=== PATIENT | female | born 1995 | race Caucasian/White ===

== ENCOUNTER → 2019-04-20 11:37 | Outpatient (CLI) | payer BC, SELFPAY ==
[2019-04-20 13:00] LABS: Hematocrit 37.9 % (36-46); Hemoglobin 13.1 g/dL (12.0-16.0)
[2019-04-20 13:19] LABS: GTT (PREG) 1 Hour PP 50gm Dose 106 mg/dL (76-139)
[2019-04-23 13:32] LABS: RPR Screen Nonreactive (Nonreactive)
== END ==
DX: Z34.82 Encounter for supervision of other normal pregnancy, second trimester (principal); O26.899 Other specified pregnancy related conditions, unspecified trimester; Z67.91 Unspecified blood type, Rh negative
CPT/HCPCS: 36415; 82950; 85014; 85018; 86592; 86850

== ENCOUNTER → 2019-06-15 10:25 | Outpatient (CLI) | payer BC, SELFPAY ==
[2019-06-16 12:03] LABS: Strep Grp B PCR POS for Grp B Strep
== END ==
DX: Z34.03 Encounter for supervision of normal first pregnancy, third trimester (principal); Z3A.35 35 weeks gestation of pregnancy
CPT/HCPCS: 87653

== ENCOUNTER 2019-07-18 11:20 | Outpatient (CLI) | payer BC, SELFPAY | END 2019-07-18 12:21 | disposition home or self-care (01) | LOC: OB 07-19 11:09 | DX: O48.0 Post-term pregnancy (principal); Z3A.40 40 weeks gestation of pregnancy | CPT/HCPCS: 59025; G0378; G0379 ==

== ENCOUNTER 2019-07-27 10:45 | Outpatient (CLI) | payer BC, SELFPAY | END 2019-07-27 11:30 | disposition home or self-care (01) | LOC: LABOR 11:09 → OB 07-28 11:18 | DX: O48.0 Post-term pregnancy (principal); Z3A.41 41 weeks gestation of pregnancy | CPT/HCPCS: 59025; G0378; G0379 ==

== ENCOUNTER 2019-07-30 08:18 | Inpatient (IN) | payer BC, SELFPAY ==
[2019-07-30 10:17] LABS: Add Manual Diff / Slide Review NO; Basophils Absolute Auto 100 /uL (0-100); Basophils Percent Auto 0.6 % (0-2); Eosinophils Absolute Auto 100 /uL (0-450); Eosinophils Percent Auto 1.3 % (2-4); Hematocrit 35.1 % (36-46); Hemoglobin 12.3 g/dL (12.0-16.0); Lymphocytes Absolute Auto 2200 /uL (1100-4500); Lymphocytes Percent Auto 22.3 % (25-40); Mean Corpuscular HGB Conc 35.1 % (30-36); Mean Corpuscular Hemoglobin 29.3 PG (26-34); Mean Corpuscular Volume 83.4 fL (80-100); Monocytes Absolute Auto 700 /uL (0-900); Monocytes Percent Auto 7.1 % (3-14); Neutrophils Absolute Auto 6800 /uL (1500-7000); Neutrophils Percent Auto 68.7 % (50-75); Platelet Count 162 X10^3/uL (150-400); Red Blood Cell Count 4.21 X10^6/uL (4.0-5.2); Red Cell Distribution Width 14.6 % (11.6-14.8); White Blood Cell Count 9.9 X10^3/uL (4.5-11.0)
[2019-07-30] MEDS: LACTATED RINGERS 1,000 ML 100 ML IV (10:17)
[2019-07-30] MEDS: PENICILLIN G POTASSIUM 5,000,000 UNIT in DEXTROSE 5% IN WATER 250 ML IV (10:25)
[2019-07-30 10:43] VITALS: BP 119/69
[2019-07-30] MEDS: OXYTOCIN PREMIX 30 UNIT/500 ML PLAST..BAG IV (11:47)
[2019-07-30] MEDS: PENICILLIN G POTASSIUM 3,000,000 UNIT/50 ML FROZ.PIGGY 100 UNIT IV ×2 (14:21→18:28)
--- NOTE | 2019-07-30 21:17 | P.HPOB_ITS ---
OB HPI Date/Time Date of admission: 07/30/19 Date Patient Seen: 07/30/19 Time Patient Seen: 13:45 History of Present Condition Chief complaint: labor : 2 Para: 0 Estimated Date of Delivery: 07/18/19 Estimated Gestational Age (weeks): 41+5 Narrative: Vanna Roberson is a 23 year old female Indications Other reason(s) for admission: SROM at 0645 History of Present care: good care, initiated at week # (8), number of visits (13) and pounds weight gain (38) Dating criteria: LMP confirmed by 1st trimester US Ultrasounds: normal 1st trimester US and normal mid trimester US Obstetrical complications: none Medical complications: none Preadmission Labs Blood type: A (-) negative -: Antibody screen: negative, GBS status: positive, HBsAG: negative, HIV: negative and RPR/VDLR: negative -: Chlamydia screen: not detected and Gonorrhea screen: not detected -: Rubella: not immune and Varicella: not immune HCT: 37.9 HCAB: negative PAP: Normal 1 hr GTT: 106 Prior (ies) History: 08/2018 SAB Evaluation Evaluation Baseline heart rate: 125 Variability: Moderate (11-25) monitor accelerations: Present monitor decelerations: Absent Contraction Frequency (minutes): 6 Uterine Contraction Intensity: Mild Category of Tracing: I Cervical dilation (cm): 2 Cervical effacement (%): 60 station: -2 Laboratory results: Laboratory Tests 07/30/19 07/30/19 10:00 10:00 WBC 9.9 RBC 4.21 Hgb 12.3 Hct 35.1 L MCV 83.4 MCH 29.3 MCHC 35.1 RDW 14.6 Plt Count 162 Neut % (Auto) 68.7 Lymph % (Auto) 22.3 L [place] % (Auto) 7.1 Eos % (Auto) 1.3 L Baso % (Auto) 0.6 Neut # (Auto) 6800 Lymph # (Auto) 2200 [place] # (Auto) 700 Eos # (Auto) 100 Baso # (Auto) 100 Blood Type A Negative Antibody Screen Negative [employer] Social History Smoking Status: Never smoker Exam Vital Signs (past 8 hours): Generally: Mild distress secondary to contractions Lungs: Clear to auscultation bilaterally Cardiovascular: Regular rate and rhythm Fundal height: 42 cm Estimated weight: 8 lb Extremities: 1+ edema, 1+ DTRs Objective Labs Result Diagrams: 07/30/19 10:00 Labs: Laboratory Results - last 24 hr 07/30/19 07/30/19 10:00 10:00 WBC 9.9 RBC 4.21 Hgb 12.3 Hct 35.1 L MCV 83.4 MCH 29.3 MCHC 35.1 RDW 14.6 Plt Count 162 Neut % (Auto) 68.7 Lymph % (Auto) 22.3 L [place] % (Auto) 7.1 Eos % (Auto) 1.3 L Baso % (Auto) 0.6 Neut # (Auto) 6800 Lymph # (Auto) 2200 [place] # (Auto) 700 Eos # (Auto) 100 Baso # (Auto) 100 Blood Type A Negative Antibody Screen Negative Assessment and Plan Assessment and Plan Assessment and Plan narrative: Assessment: 23-year-old 2 para 0 at 41-,5/7 weeks gestation with spontaneous rupture of membranes GBS positive No regular contractions Plan: GBS prophylaxis Pitocin per protocol 2 Epidural as necessary Expected management to spontaneous vaginal delivery Time Spent with Patient Total time spent with greater than 50% in coordination of care (as documented) at patient's floor/unit and/or counseling patient:: 15-24 minutes
--- NOTE | 2019-07-30 21:27 | P.PCNOB_ITS ---
Events: Labor Augmentation and Meconium Stained Fluid (Moderate) Labor & Delivery Delivery date: 07/30/19 Cervical ripening method: none Induction method: none Delivery augmentation: pitocin Delivery monitor: external FHT and external uterine Route of delivery: Episiotomy description: None L&D Laceration Description: Vaginal - 1st Degree Delivery repair: chromic (3-0) Estimated blood loss (mL): 150 Anesthesia type: Epidural Complications: None Narrative: Patient complete and pushed for 40 minutes. At 2049, a live female infant delivered spontaneously over an intact perineum. The remainder of the body delivered without difficulty and was placed on mom's abdomen. After the cord stopped pulsing, the cord was double clamped and cut. Cord bloods were obtained. The placenta delivered intact with a 3 vessel cord at 8:56 p.m.. First-degree right labial, left labial, and periurethral tears were repaired with 3 0 chromic in the usual fashion. Hemostasis was achieved. Estimated blood loss 150 cc. Apgars 8 at 1 minute and 9 at 5 minutes. . Epidural analgesia. Mom and stable to recovery. Plan for aftercare: To routine care
[2019-07-31] MEDS: IBUPROFEN 600 MG TABLET PO ×2 (00:02→11:45)
[2019-07-31 06:48] LABS: Hematocrit 33.2 % (36-46); Hemoglobin 11.1 g/dL (12.0-16.0)
--- NOTE | 2019-07-31 08:09 | P.PNOB_ITS ---
Subjective - OB Subjective Patient comments: no complaints [place] baby status: doing well [place] feeding status: exclusively breast feeding Narrative: Patient is status post spontaneous vaginal delivery without difficulty. She is recovering nicely. Date Patient Seen: 07/31/19 Time Patient Seen: 08:10 Exam Vital Signs (past 8 hours): Abdomen is soft and nontender Fundus is U minus two Lochia is scant Objective Labs Result Diagrams: 07/31/19 06:36 Labs: Laboratory Results - last 24 hr 07/30/19 07/30/19 07/31/19 10:00 10:00 06:36 WBC 9.9 RBC 4.21 Hgb 12.3 11.1 L Hct 35.1 L 33.2 L MCV 83.4 MCH 29.3 MCHC 35.1 RDW 14.6 Plt Count 162 Neut % (Auto) 68.7 Lymph % (Auto) 22.3 L [place] % (Auto) 7.1 Eos % (Auto) 1.3 L Baso % (Auto) 0.6 Neut # (Auto) 6800 Lymph # (Auto) 2200 [place] # (Auto) 700 Eos # (Auto) 100 Baso # (Auto) 100 Blood Type A Negative Antibody Screen Negative Maternal Bleed 07/31/19 06:36 WBC RBC Hgb Hct MCV MCH MCHC RDW Plt Count Neut % (Auto) Lymph % (Auto) [place] % (Auto) Eos % (Auto) Baso % (Auto) Neut # (Auto) Lymph # (Auto) [place] # (Auto) Eos # (Auto) Baso # (Auto) Blood Type Antibody Screen Maternal Bleed Negative Assessment & Plan Plan day: 1 plan OB: routine care Comments: doing Time Spent With Patient Time: Total time spent is greater than 50% in coordination of care (as documented) at patient's floor/unit and/or counseling patient: Time with patient: less than 15 minutes
[2019-07-31] MEDS: PRENATAL VIT,CALC/IRON/FOLIC 1 TABLET 1 TAB PO (11:46)
[2019-07-31] MEDS: DOCUSATE 100 MG CAPSULE PO (11:46)
[2019-08-01] MEDS: IBUPROFEN 600 MG TABLET PO (03:31)
[2019-08-01 07:51] VITALS: BP 107/65; PULSE 82; RESP 16; TEMP 36.6
--- NOTE | 2019-08-01 07:52 | P.DS_ITS ---
Discharge Providers Provider Date of admission: 07/30/19 08:18 Discharge Date: 08/01/19 Consults: 07/31/19 21:30 Consult to Software Developer Routine Comment: Discharge provider: Flaquito Soria MD Summary Hospital Course Date Patient Seen: 08/01/19 Time Patient Seen: 07:52 Procedures: Pitocin augmentation of labor Epidural anesthesia Spontaneous vaginal delivery Repair of 1st degree tear Hospital Course: The patient is a 23-year-old white female one para one. Patient was scheduled for induction because of postdatism but presented with premature spontaneous rupture of the membranes. Pitocin was begun. An epidural was placed. Patient made good progress to complete and pushed for 15 minutes and delivered spontaneous new live-born female in good condition without difficulties. Post delivery the patient did well. She remained afebrile stable vital signs and was progressively alimented and ambulated. She was discharged home for follow-up in four weeks. Peripartum Data Laceration description: Perineal - 1st Degree complications: none Status at Discharge Cognitive/behavioral status at discharge: oriented Functional status at discharge: independent ambulation Overall status at discharge: patient is progressing back to baseline Time Spent with Patient Time attestation: Total time spent providing and/or coordinating discharge services: Objective Labs Result Diagrams: 07/31/19 06:36 Labs: Laboratory Results - last 24 hr 07/31/19 06:36 Maternal Bleed Negative Exam Vital Signs (past 8 hours): Fundus U minus three Lochia scant Perineum without ecchymoses Laceration healing well Discharge Plan Discharge Plan Patient Disposition: Home Discharge orders & Medications Prescriptions: New Dermoplast (with menthol) 20-0.5 % Aerosol 1 spray topical Q1HR PRN (Reason: perineal pain) Qty: 1 RF: 0 oxycodone-acetaminophen 5-325 mg Tablet 1 tab PO Q4HR PRN (Reason: Pain, Moderate (4-6)) Qty: 10 RF: 0 docusate sodium [DOK] 100 mg Capsule 100 mg PO DAILY Qty: 12 RF: 0 ibuprofen 600 mg Tablet 600 mg PO Q6HR PRN (Reason: Pain, Mild (1-3)) Qty: 30 RF: 0 Uyn-H-Qfyvzd Cream 1 applic topical PRN PRN (Reason: Tenderness) Qty: 1 RF: 0 Prenatabs Rx 29 mg iron- 1 mg Tablet 1 tab PO DAILY Qty: 60 RF: 0 Follow up/Referrals: Flaquito Soria MD [Physician] - 1 Month Discharge Health Status Health Concerns: None Multidrug resistant organism: No MDRO Diet/Activity/Treatments Diet: Diet as Tolerated Diet comment: Regular diet Activity: Up ad aamir Other treatments: Perineal care Skin/Wound/Dressing Care Report to your healthcare provider any signs of infection, such as:: chills, fever, increased pain, unusual drainage and unusual redness Other wound treatment: Keep clean and dry
[2019-08-01] MEDS: DOCUSATE 100 MG CAPSULE PO (08:24)
[2019-08-01] MEDS: ACETAMINOPHEN 325 MG TABLET 650 MG PO (08:24)
[2019-08-01] MEDS: PRENATAL VIT,CALC/IRON/FOLIC 1 TABLET 1 TAB PO (08:24)
[2019-08-01] MEDS: MEASLES,MUMPS,RUBELLA VACC/PF 0.5 ML VIAL SUBCUT (12:17)
[2019-08-01] MEDS: RHO(D) IMMUNE GLOBULIN 1,500 UNIT SYRINGE 1500 UNIT IM (12:20)
== END 2019-08-01 13:50 | disposition home or self-care (01) | DRG 807 ==
PROVIDERS: Obstetrics & Gynecology
DX: O48.0 Post-term pregnancy (principal); Z37.0 Single live birth; O99.824 Streptococcus B carrier state complicating childbirth; Z3A.41 41 weeks gestation of pregnancy; O70.0 First degree perineal laceration during delivery; O71.82 Other specified trauma to perineum and vulva
CPT/HCPCS: 01967; 36415; 59050; 59400; 59409; 85014; 85018; 85025; 85461; 86850; 86900; 86901; G0379; J2540; J2590; J2790

== ENCOUNTER → 2020-12-11 16:19 | Outpatient (CLI) | payer BC, SELFPAY ==
[2020-12-11 21:22] LABS: Urine N gonorrhoeae NOT DETECTED
[2020-12-11 21:26] LABS: Urine Chlamydia NOT DETECTED
== END ==
PROVIDERS: Visit Provider Obstetrics & Gynecology
DX: Z34.82 Encounter for supervision of other normal pregnancy, second trimester (principal); Z3A.17 17 weeks gestation of pregnancy
CPT/HCPCS: 87491; 87591

== ENCOUNTER → 2020-12-11 16:49 | Outpatient (CLI) | payer BC, SELFPAY ==
[2020-12-11 17:53] LABS: Add Manual Diff / Slide Review NO; Basophils Absolute Auto 0 /uL (0-100); Basophils Percent Auto 0.2 % (0-2); Eosinophils Absolute Auto 100 /uL (0-450); Eosinophils Percent Auto 1.5 % (2-4); Hematocrit 39.2 % (36-46); Hemoglobin 13.4 g/dL (12.0-16.0); Lymphocytes Absolute Auto 2400 /uL (1100-4500); Lymphocytes Percent Auto 26.1 % (25-40); Mean Corpuscular HGB Conc 34.3 % (30-36); Mean Corpuscular Hemoglobin 29.1 PG (26-34); Monocytes Absolute Auto 400 /uL (0-900); Monocytes Percent Auto 4.6 % (3-14); Neutrophils Absolute Auto 6300 /uL (1500-7000); Neutrophils Percent Auto 67.6 % (50-75); Platelet Count 141 X10^3/uL (150-400); Red Blood Cell Count 4.61 X10^6/uL (4.0-5.2); Red Cell Distribution Width 13.4 % (11.6-14.8); White Blood Cell Count 9.4 X10^3/uL (4.5-11.0)
[2020-12-11 18:13] LABS: Appearance Urine UA CLEAR; Bilirubin Urine UA NEGATIVE (NEGATIVE); Color Urine UA YELLOW; Glucose Urine UA NEGATIVE (Negative); Ketones Urine UA 1+ (NEGATIVE); Leukocyte Esterase Urine UA NEGATIVE (NEGATIVE); Nitrite Urine UA NEGATIVE (Negative); Occult Blood Urine UA NEGATIVE (Negative); Protein Urine UA NEGATIVE (Negative); Specific Gravity Urine UA 1.015 (1.000-1.035); Urobilinogen Urine UA 0.2 E.U./dL (0.2)
[2020-12-11 18:14] LABS: pH Urine UA 5.5 (4.5-8.0)
[2020-12-12 05:30] LABS: RPR Screen Non Reactive (Non Reactive)
[2020-12-12 15:04] LABS: Varicella IgG Antibody <135 index (Immune >165)
[2020-12-13 00:03] LABS: Hepatitis B Surface Antigen NEGATIVE s/c (NEGATIVE); Rubella Antibody IgG 25.8 IU/mL (>15)
[2020-12-13 00:20] LABS: HIV 1 & 2 Ab/Ag 4th Gen Combo NEGATIVE (NEGATIVE); Hep C Virus Ab w/Reflex Quant NEGATIVE s/c (NEGATIVE)
== END ==
PROVIDERS: Referring Provider Obstetrics & Gynecology; Visit Provider Obstetrics & Gynecology
DX: Z34.82 Encounter for supervision of other normal pregnancy, second trimester (principal); Z3A.17 17 weeks gestation of pregnancy
CPT/HCPCS: 36415; 80055; 81003; 86787; 86803; 86850; 86900; 86901; 87086; 87389; 87491; 87591

== ENCOUNTER → 2021-01-03 14:52 | Outpatient (CLI) | payer BC, SELFPAY ==
--- NOTE | 2021-01-03 14:53 | DI.US.S_ITS ---
PROCEDURE: US OB >= 14 WEEKS FETUS INDICATIONS: ANATOMY OUTSIDE/PRIOR DATING DATA: Last menstrual period (LMP): Unknown . LMP-based estimated date of delivery (DIANA): Unknown . First dating scan (date and location): 10/14/2020, [facility] Estimated date of delivery (DIANA) from first dating scan: 05/22/2021. TECHNIQUE: Real-time scanning was performed of the fetus, with image documentation and biometric measurements. COMPARISON: [facility], , OB <= 14 WEEKS FETUS, 10/14/2020, 13:53. [facility], , OB >= 14 WEEKS FETUS, 12/11/2020, 16:44. FINDINGS: General: A single living intrauterine gestation is present. Presentation: Variable. Placenta: Placental position is posterior , without previa. Amniotic fluid index: 10.5 cm, normal range is 5-24 cm. heart rate: 133 beats per minute. Maternal cervical canal: 3.0 cm long. Normal lower limit is 2.5 cm. biometrics: Biparietal diameter: 4.7 cm, 20 weeks 0 days Head circumference: 17.1 cm, 19 weeks 5 days Abdominal circumference: 15.2 cm, 20 weeks 3 days Femur length: 3.4 cm, 20 weeks 5 days Estimated gestational age from initial scan: not applicable. Composite gestational age from present scan: 20 weeks 2 days Estimated weight and percentile: 356 g Measurement variability for biometric dating: +/- 7 days from 14 weeks to 15 weeks 6 days gestation, +/- 10 days from 16 weeks to 21 weeks 6 days gestation, +/- 2 weeks from 22 weeks to 27 weeks 6 days gestation, +/- 3 weeks for 28 weeks gestation or later. weight reference: 4500 g or EFW >90/95% is considered macrosomia or large for gestational age. EFW <10% is small for gestational age. EFW 5% or less is considered intra-uterine growth restriction. Anatomic survey: Neuro: Ventricles are non-dilated at less than 10 mm. Cisterna magna is normal at 3-11 mm. Cerebellum is normal in size and morphology. Nuchal skin fold: Normal at less than 6 mm between 14-21 weeks gestational age. Face: Nose and lips, facial profile are normal. Spine: No evidence for spina bifida. Heart: 4-chambered heart is present, with normal ventricular outflow tracts. Diaphragm: Diaphragm is intact. Stomach: Left-sided stomach is present. Kidneys: No hydronephrosis. Normal is less than 5 mm in 2nd trimester, less than 7 mm in 3rd trimester. Cord: 3-vessel cord has orthotopic insertion. Bladder: Normal in size. Extremities: All 4 extremities identified. IMPRESSION: 1. Living 2nd trimester intrauterine . Current ultrasound age is 1 day less than clinical age based on initial ultrasound performed at [facility] 2. Normal anatomy study. Dictated by: Hernandez Valle M.D. on 01/03/2021 at 16:56 Approved by: Hernandez Valle M.D. on 01/03/2021 at 17:03
== END ==
PROVIDERS: PCP Family Medicine; Referring Provider Obstetrics & Gynecology; Visit Provider Obstetrics & Gynecology
DX: Z3A.20 20 weeks gestation of pregnancy (principal); Z34.82 Encounter for supervision of other normal pregnancy, second trimester
CPT/HCPCS: 76811

== ENCOUNTER → 2021-02-06 13:13 | Outpatient (CLI) | payer BC, SELFPAY ==
[2021-02-06 15:32] LABS: Add Manual Diff / Slide Review NO; Basophils Absolute Auto 0 /uL (0-100); Basophils Percent Auto 0.3 % (0-2); Eosinophils Absolute Auto 100 /uL (0-450); Hemoglobin 12.1 g/dL (12.0-16.0); Lymphocytes Absolute Auto 1700 /uL (1100-4500); Lymphocytes Percent Auto 19.9 % (25-40); Mean Corpuscular HGB Conc 34.6 % (30-36); Mean Corpuscular Hemoglobin 30.1 PG (26-34); Monocytes Absolute Auto 400 /uL (0-900); Monocytes Percent Auto 4.8 % (3-14); Neutrophils Absolute Auto 6300 /uL (1500-7000); Platelet Count 132 X10^3/uL (150-400); Red Blood Cell Count 4.03 X10^6/uL (4.0-5.2); White Blood Cell Count 8.6 X10^3/uL (4.5-11.0)
[2021-02-06 15:54] LABS: GTT (PREG) 1 Hour PP 50gm Dose 118 mg/dL (76-139)
[2021-02-13 13:28] LABS: AFP, Serum 76.6 ng/mL (.); Estriol, Free 3.65 ng/mL (.); Inhibin A, Dimeric 235.16 pg/mL (.); Inhibin A, MoM See interpretation. (.); Maternal Ethnicity Caucasian (.); Maternal Weight 198 lbs (.); Number of Fetuses No (.); OSBR Risk 1 IN See interpretation. (.); Results Report (.); T18 Risk by Age See interpretation. (.); Test Results See interpretation. (.); hCG, MoM See interpretation. (.); hCG, Serum 22126 mIU/mL (.)
== END ==
PROVIDERS: PCP Family Medicine; Referring Provider Obstetrics & Gynecology; Visit Provider Obstetrics & Gynecology
DX: Z34.82 Encounter for supervision of other normal pregnancy, second trimester (principal); Z3A.26 26 weeks gestation of pregnancy
CPT/HCPCS: 36415; 82105; 82677; 82950; 84702; 85025; 86336; 86850

== ENCOUNTER → 2021-04-16 17:01 | Outpatient (CLI) | payer BC, SELFPAY ==
[2021-04-17 13:24] LABS: Strep Grp B PCR NEG for Grp B Strep
== END ==
PROVIDERS: PCP Family Medicine; Visit Provider Obstetrics & Gynecology
DX: Z34.83 Encounter for supervision of other normal pregnancy, third trimester (principal); Z3A.35 35 weeks gestation of pregnancy
CPT/HCPCS: 87653

== ENCOUNTER 2021-05-19 07:13 | Inpatient (IN) | payer BC, SELFPAY ==
[2021-05-19 08:09] VITALS: BP 110/59
[2021-05-19 08:17] LABS: Add Manual Diff / Slide Review NO; Basophils Absolute Auto 0 /uL (0-100); Basophils Percent Auto 0.3 % (0-2); Eosinophils Absolute Auto 100 /uL (0-450); Eosinophils Percent Auto 1.2 % (2-4); Hematocrit 38.6 % (36-46); Lymphocytes Absolute Auto 2300 /uL (1100-4500); Lymphocytes Percent Auto 27.5 % (25-40); Mean Corpuscular HGB Conc 33.6 % (30-36); Mean Corpuscular Hemoglobin 29.2 PG (26-34); Mean Corpuscular Volume 86.8 fL (80-100); Monocytes Absolute Auto 600 /uL (0-900); Monocytes Percent Auto 7.3 % (3-14); Neutrophils Absolute Auto 5300 /uL (1500-7000); Neutrophils Percent Auto 63.7 % (50-75); Platelet Count 137 X10^3/uL (150-400); Red Blood Cell Count 4.45 X10^6/uL (4.0-5.2); White Blood Cell Count 8.3 X10^3/uL (4.5-11.0)
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
[2021-05-19] MEDS: LACTATED RINGERS 1,000 ML 100 ML IV ×3 (08:56→19:23)
[2021-05-19] MEDS: OXYTOCIN PREMIX 30 UNIT/500 ML PLAST..BAG IV (08:56)
[2021-05-19 09:07] LABS: COVID19 - ADMIT (NP swab/PCR) Negative (Negative)
[2021-05-19] MEDS: FENT 2MCG/ML BUPIV 0.125% EPI 200 MCG/100 ML PLAST..BAG 10 MCG EPIDURAL (16:43)
[2021-05-19] MEDS: OXYTOCIN 10 UNIT/ML VIAL IM (20:40)
[2021-05-19] MEDS: METHYLERGONOVINE 0.2 MG/ML VIAL IM (20:45)
--- NOTE | 2021-05-19 20:55 | PM.OBPRVD ---
Labor & Delivery Delivery date: 05/19/21 Cervical ripening method: none Induction method: per pitocin protocol Delivery augmentation: rupture of membranes Delivery monitor: external FHT and external uterine Route of delivery: L&D Laceration Description: Perineal - 1st Degree (Not requiring sutures) and Labial (Right not requiring sutures) Estimated blood loss (mL): 650 Anesthesia Type: Epidural Narrative: Patient arrived on Labor and delivery for induction for postdates. She was started on Pitocin for induction. She received an epidural catheter for pain control after AROM for clear fluid. heart tones category 1 to category 2 throughout labor. Patient delivered spontaneously, over an intact perineum. A nuchal cord was released prior to delivery of the body. The viable female infant was placed on maternal abdomen. After the cord stopped pulsating the cord was clamped, cut, and cord bloods obtained. The placenta delivered spontaneously, intact, with 3 vessels. There were no cervical or vaginal tears. A first-degree right labial tear and a first-degree perineal tear were observed and not actively bleeding so not repaired. There was more than usual vaginal bleeding that was treated with IV followed by IM Pitocin and IM Methergine with uterine massage. Both mother doing well. Counts of instruments and sponges were correct. [place] Baby 1: gender: Female Presentation: vertex Position: Right Occiput Anterior Placenta delivery description: Spontaneous Cord Vessel Description: 3 Vessels and Nuchal Cord score (1 min): 8 score (5 min): 9 Plan for aftercare: Routine care
[2021-05-19] MEDS: miSOPROStoL 200 MCG TABLET 800 MCG PR (21:02)
[2021-05-19] MEDS: ONDANSETRON 4 MG/2 ML INJ IV (21:19)
[2021-05-19] MEDS: ACETAMINOPHEN 325 MG TABLET 650 MG PO (22:42)
[2021-05-19] MEDS: IBUPROFEN 600 MG TABLET PO (22:42)
[2021-05-20 06:44] LABS: Add Manual Diff / Slide Review NO; Basophils Absolute Auto 0 /uL (0-100); Basophils Percent Auto 0.2 % (0-2); Eosinophils Absolute Auto 100 /uL (0-450); Eosinophils Percent Auto 0.5 % (2-4); Hematocrit 32.8 % (36-46); Lymphocytes Absolute Auto 1800 /uL (1100-4500); Lymphocytes Percent Auto 15.9 % (25-40); Mean Corpuscular HGB Conc 33.4 % (30-36); Mean Corpuscular Hemoglobin 29.2 PG (26-34); Mean Corpuscular Volume 87.3 fL (80-100); Monocytes Absolute Auto 800 /uL (0-900); Monocytes Percent Auto 7.3 % (3-14); Neutrophils Absolute Auto 8800 /uL (1500-7000); Neutrophils Percent Auto 76.1 % (50-75); Platelet Count 122 X10^3/uL (150-400); Red Blood Cell Count 3.76 X10^6/uL (4.0-5.2); Red Cell Distribution Width 14.2 % (11.6-14.8); White Blood Cell Count 11.5 X10^3/uL (4.5-11.0)
[2021-05-20] MEDS: IBUPROFEN 600 MG TABLET PO ×2 (07:23→13:50)
[2021-05-20] MEDS: RHO(D) IMMUNE GLOBULIN 1,500 UNIT SYRINGE 1500 UNIT IM (12:40)
--- NOTE | 2021-05-20 16:56 | P.DS_ITS ---
Discharge Providers Provider Date of admission: 05/19/21 07:13 Discharge Date: 05/20/21 Primary care physician: Elijah Gregory MD Consults: 05/20/21 20:51 Consult to Lifestyle Director Routine Comment: Discharge provider: Domitila Herring MD Summary Hospital Course Date Patient Seen: 05/20/21 Time Patient Seen: 16:56 Diagnoses: 40 week gestation admitted for induction with spontaneous vaginal delivery Hospital Course: Patient arrived on Labor and delivery for induction. She was started on Pitocin. She was AROM for clear fluid and received an epidural catheter for pain control. She had a spontaneous vaginal delivery. Patient had hemorrhage that responded to Pitocin IV and IM, Methergine IM, Cytotec per rectum. Patient is breast-feeding without difficulty. She is urinating and ambulating well. She has minimal pain. Peripartum Data Infant Delivery Method: Natural Vaginal Laceration Description: Superficial Procedures: Pitocin induction, epidural catheter, spontaneous vaginal delivery complications: none 1: Gender: Female Disposition of : home Discharge Diagnosis (1) Vaginal delivery: Status: Acute Status at Discharge Cognitive/behavioral status at discharge: oriented Functional status at discharge: independent ambulation Overall status at discharge: patient is progressing back to baseline Time Spent with Patient Time attestation: Total time spent providing and/or coordinating discharge services: Time spent: Less than 30 minutes Objective Labs Result Diagrams: 05/20/21 06:26 Labs: Laboratory Results - last 24 hr 05/20/21 05/20/21 06:26 06:26 WBC 11.5 H RBC 3.76 L Hgb 11.0 L Hct 32.8 L MCV 87.3 MCH 29.2 MCHC 33.4 RDW 14.2 Plt Count 122 L Neut % (Auto) 76.1 H Lymph % (Auto) 15.9 L [place] % (Auto) 7.3 Eos % (Auto) 0.5 L Baso % (Auto) 0.2 Neut # (Auto) 8800 H Lymph # (Auto) 1800 [place] # (Auto) 800 Eos # (Auto) 100 Baso # (Auto) 0 Maternal Bleed Negative Exam Vital Signs (past 8 hours): Blood pressure 100/54, pulse 71, temperature 98.3? Narrative Exam Narrative: Patient's abdomen is soft, nontender. Uterus is firm, at U, nontender. Lochia is moderate. Extremities without edema and nontender. Patient received RhoGAM for her blood type of A negative and baby Rh positive, she is rubella immune, she received Tdap in the 3rd trimester. Discharge Plan Discharge Plan Patient Disposition: Home Discharge orders & Medications Prescriptions: Continued docusate sodium [Colace] 100 mg capsule 100 mg PO DAILY Qty: 30 RF: 2 prenat.vits,char,zth-aycn-qoars Tablet 1 tab PO DAILY RF: 0 Follow up/Referrals: Domitila Herring MD [Physician] - Judi Tucker MD [Physician] - 6 Weeks Elijah Gregory MD [Primary Care Provider] - Diet/Activity/Treatments Diet: Regular Activity: Nothing in vagina for 6 weeks Skin/Wound/Dressing Care Report to your healthcare provider any signs of infection, such as:: chills, fever and increased pain Discharge Data Primary Care Provider: Elijah Gregory
[2021-05-20 17:14] VITALS: BP 100/54; PULSE 71; RESP 16; TEMP 36.7
== END 2021-05-20 18:35 | disposition home or self-care (01) | DRG 807 ==
PROVIDERS: Obstetrics & Gynecology; Admitting Provider Specialist; PCP Family Medicine; Referring Provider Specialist; Visit Provider Specialist
DX: O48.0 Post-term pregnancy (principal); Z37.0 Single live birth; Z3A.40 40 weeks gestation of pregnancy; O70.0 First degree perineal laceration during delivery; Z20.822 Contact with and (suspected) exposure to COVID-19
CPT/HCPCS: 01967; 36415; 59050; 59400; 59409; 85025; 85461; 86850; 86870; 86900; 86901; 87635; C9803; G0379; J2210; J2405; J2590; J2790; S0191

== ENCOUNTER → 2021-11-12 15:06 | Outpatient (CLI) | payer BC, SELFPAY ==
[2021-11-12 16:17] LABS: HCG Quantitative /Beta subunit < 2.4 mIU/mL
== END ==
PROVIDERS: PCP Family Medicine; Referring Provider Obstetrics & Gynecology; Visit Provider Obstetrics & Gynecology
DX: N91.2 Amenorrhea, unspecified (principal)
CPT/HCPCS: 36415; 84702

== ENCOUNTER → 2023-02-10 15:43 | Outpatient (CLI) | payer OTHER, SELFPAY ==
[2023-02-10 20:31] LABS: Urine N gonorrhoeae NOT DETECTED
[2023-02-10 21:10] LABS: Urine Chlamydia NOT DETECTED
== END ==
PROVIDERS: PCP Internal Medicine; Visit Provider Specialist
DX: Z34.81 Encounter for supervision of other normal pregnancy, first trimester (principal); Z3A.13 13 weeks gestation of pregnancy
CPT/HCPCS: 87491; 87591

== ENCOUNTER → 2023-02-10 16:16 | Outpatient (CLI) | payer OTHER, SELFPAY ==
[2023-02-10 17:17] LABS: Add Manual Diff / Slide Review NO; Basophils Absolute Auto 0 /uL (0-100); Basophils Percent Auto 0.4 % (0-2); Eosinophils Absolute Auto 100 /uL (0-450); Eosinophils Percent Auto 1.3 % (2-4); Hematocrit 37.2 % (36-46); Hemoglobin 13.1 g/dL (12.0-16.0); Lymphocytes Absolute Auto 2000 /uL (1100-4500); Lymphocytes Percent Auto 27.9 % (25-40); Mean Corpuscular HGB Conc 35.2 % (30-36); Mean Corpuscular Hemoglobin 29.5 PG (26-34); Mean Corpuscular Volume 83.6 fL (80-100); Monocytes Absolute Auto 500 /uL (0-900); Monocytes Percent Auto 6.2 % (3-14); Neutrophils Absolute Auto 4700 /uL (1500-7000); Neutrophils Percent Auto 64.2 % (50-75); Platelet Count 152 X10^3/uL (150-400); Red Blood Cell Count 4.45 X10^6/uL (4.0-5.2); Red Cell Distribution Width 13.4 % (11.6-14.8); White Blood Cell Count 7.3 X10^3/uL (4.5-11.0)
[2023-02-11 07:36] LABS: RPR Screen Non Reactive (Non Reactive)
[2023-02-11 09:09] LABS: Varicella IgG Antibody <135 index (Immune >165)
[2023-02-11 16:38] LABS: HIV 1 & 2 Ab/Ag 4th Gen Combo NEGATIVE (NEGATIVE); Hep C Virus Ab w/Reflex Quant NEGATIVE s/c (NEGATIVE); Hepatitis B Surface Antigen NEGATIVE s/c (NEGATIVE); Rubella Antibody IgG 15.9 IU/mL (>15)
== END ==
PROVIDERS: PCP Internal Medicine; Referring Provider Obstetrics & Gynecology; Visit Provider Obstetrics & Gynecology
DX: Z34.81 Encounter for supervision of other normal pregnancy, first trimester (principal); Z3A.13 13 weeks gestation of pregnancy
CPT/HCPCS: 36415; 80055; 86787; 86803; 86850; 86900; 86901; 87086; 87389; 87491; 87591

== ENCOUNTER → 2023-04-07 15:00 | Outpatient (CLI) | payer OTHER, SELFPAY ==
--- NOTE | 2023-04-07 15:01 | DI.US.S_ITS ---
PROCEDURE: US OB >= 14 WEEKS FETUS INDICATIONS: ANATOMY OUTSIDE/PRIOR DATING DATA: Last menstrual period (LMP): 11/06/2022. LMP-based estimated date of delivery (DIANA): 08/13/2023. First dating scan (date and location): 04/07/2023. Estimated date of delivery (DIANA) from first dating scan: 08/13/2023. TECHNIQUE: Real-time scanning was performed of the fetus, with image documentation and biometric measurements. COMPARISON: [facility], , OB <= 14 WEEKS FETUS, 02/10/2023, 15:56. [facility], , OB >= 14 WEEKS FETUS, 01/03/2021, 15:18. FINDINGS: General: A single living intrauterine gestation is present. Presentation: Breech. Placenta: Placental position is anterior , without previa. Amniotic fluid index: 10.8 cm, normal range is 5-24 cm. Single deepest vertical pocket is 3.4 cm. heart rate: 140 beats per minute. Maternal cervical canal: 4.5 cm long. Normal lower limit is 2.5 cm. biometrics: Biparietal diameter: 5.1 cm, 21 weeks and 4 days Head circumference: 19.4 cm, 21 weeks and 4 days Abdominal circumference: 17.1 cm, 22 weeks Femur length: 3.7 cm, 21 weeks and 6 days Clinically estimated gestational age: 21 weeks and 5 days Composite gestational age from present scan: 21 weeks and 5 days Estimated weight and percentile: 460 g, 54th percentile. Anatomic survey: Neuro: Ventricles are non-dilated at less than 10 mm. Cisterna magna is normal at 3-11 mm. Cerebellum is normal in size and morphology. Nuchal skin fold: Normal at less than 6 mm between 14-21 weeks gestational age. Face: Nose and lips, facial profile are normal. Spine: No evidence for spina bifida. Heart: 4-chambered heart is present, with normal ventricular outflow tracts. Diaphragm: Diaphragm is intact. Stomach: Left-sided stomach is present. Kidneys: No hydronephrosis. Normal is less than 5 mm in 2nd trimester, less than 7 mm in 3rd trimester. Cord: 3-vessel cord has orthotopic insertion. Bladder: Normal in size. Extremities: All 4 extremities identified. IMPRESSION: Living intrauterine gestation at 21 weeks and 5 days. Interval growth is normal. No significant abnormalities on routine anatomic survey. Dictated by: Richie Arriaga M.D. on 04/07/2023 at 17:03 Approved by: Richie Arriaga M.D. on 04/07/2023 at 17:08
== END ==
PROVIDERS: PCP Internal Medicine; Referring Provider Specialist; Visit Provider Specialist
DX: Z34.82 Encounter for supervision of other normal pregnancy, second trimester (principal); Z3A.21 21 weeks gestation of pregnancy
CPT/HCPCS: 76811

== ENCOUNTER → 2023-05-21 13:36 | Outpatient (CLI) | payer OTHER, SELFPAY ==
[2023-05-21 15:41] LABS: GTT (PREG) 1 Hour PP 50gm Dose 103 mg/dL (76-139)
== END ==
PROVIDERS: PCP Internal Medicine; Referring Provider Obstetrics & Gynecology; Visit Provider Obstetrics & Gynecology
DX: Z34.82 Encounter for supervision of other normal pregnancy, second trimester (principal); Z3A.26 26 weeks gestation of pregnancy
CPT/HCPCS: 36415; 82950; 85014; 85018; 86850

== ENCOUNTER → 2023-07-19 15:26 | Outpatient (CLI) | payer OTHER, SELFPAY ==
[2023-07-20 15:32] LABS: Strep Grp B PCR NEG for Grp B Strep
== END ==
PROVIDERS: PCP Internal Medicine; Visit Provider Obstetrics & Gynecology
DX: Z34.83 Encounter for supervision of other normal pregnancy, third trimester (principal); Z3A.36 36 weeks gestation of pregnancy
CPT/HCPCS: 87653

== ENCOUNTER 2023-08-17 16:09 | Outpatient (CLI) | payer OTHER, SELFPAY ==
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
== END 2023-08-17 17:10 | disposition home or self-care (01) ==
LOC: OB 08-19 08:03
PROVIDERS: PCP Internal Medicine; Referring Provider Specialist; Visit Provider Specialist
DX: O48.0 Post-term pregnancy (principal); Z3A.40 40 weeks gestation of pregnancy
CPT/HCPCS: 59025; G0378; G0379

== ENCOUNTER 2023-08-22 22:19 | Inpatient (IN) | payer OTHER, SELFPAY ==
[2023-08-22 22:42] VITALS: BP 124/65
[2023-08-22 23:12] LABS: Add Manual Diff / Slide Review NO; Basophils Absolute Auto 100 /uL (0-100); Basophils Percent Auto 1.1 % (0-2); Eosinophils Absolute Auto 100 /uL (0-450); Eosinophils Percent Auto 1.7 % (2-4); Hematocrit 33.6 % (36-46); Hemoglobin 11.4 g/dL (12.0-16.0); Lymphocytes Absolute Auto 2400 /uL (1100-4500); Lymphocytes Percent Auto 27.6 % (25-40); Mean Corpuscular HGB Conc 33.8 % (30-36); Mean Corpuscular Hemoglobin 26.5 PG (26-34); Mean Corpuscular Volume 78.5 fL (80-100); Monocytes Absolute Auto 600 /uL (0-900); Monocytes Percent Auto 6.6 % (3-14); Neutrophils Absolute Auto 5400 /uL (1500-7000); Platelet Count 138 X10^3/uL (150-400); Red Blood Cell Count 4.28 X10^6/uL (4.0-5.2); Red Cell Distribution Width 15.3 % (11.6-14.8); White Blood Cell Count 8.6 X10^3/uL (4.5-11.0)
[2023-08-23] MEDS: LACTATED RINGERS 1,000 ML 100 ML IV (00:57)
--- NOTE | 2023-08-23 05:51 | PM.AN.REGBLK ---
Regional Block Pre-procedure Procedure: Continuous Lumbar Epidural for L&D Attending OB provider: Aliya Emery PMH/ROS narrative: 41/3 healthy 27yo female. Hx: No personal or family history of anesthesia problems. PSH/Anesthesia history narrative: History of epidural. No family history of anesthesia reaction. ASA Class: II Labs: Hct 33.6 % (36-46) L 08/22/23 22:46 Plt Count 138 X10^3/uL (150-400) L 08/22/23 22:46 Medications: Current Medications Generic Name Dose Route Start Last Admin Trade Name Freq PRN Reason Stop Dose Admin Calcium Carbonate 1,000 mg 08/22/23 22:53 Calcium Carbonate 500 Mg Tab PO Q4HR PRN Dyspepsia Carboprost Tromethamine 250 mcg 08/22/23 22:53 Carboprost 250 Mcg/Ml Ampul IM Q90M PRN Bleeding Diphenhydramine HCl 25 mg 08/23/23 05:49 Diphenhydramine 50 Mg/Ml Vial IV Q10M PRN Pruritis Ephedrine Sulfate 5 mg 08/23/23 05:49 Ephedrine 50 Mg/Ml Vial IV Q5M PRN Blood pressure decrease more than 20% of baseline. Fentanyl 50 mcg 08/22/23 22:53 Fentanyl 100 Mcg/2 Ml Inj IV Q1H PRN Pain, Moderate (4-6) Oxytocin/Lactated Ringer's 30 unit in 500 mls @ 200 mls/hr 08/22/23 22:53 Oxytocin Premix IV CONT PRN Bleeding Protocol Tranexamic Acid 1,000 mg/ 100 mls @ 200 mls/hr 08/22/23 22:53 Sodium Chloride IV NOW PRN Bleeding Lactated Ringer's 1,000 mls @ 100 mls/hr 08/22/23 23:00 08/23/23 00:57 Lactated Ringers IV 100 mls/hr CONT MICKY Administration FENT 2MCG/ML BUPIV 0.125% EPI 200 mcg in 100 mls @ 5 mls/hr 08/23/23 06:00 Fentanyl/Bupiv/Ns 2mcg/Ml - 0.125% EPIDURAL CONT MICKY Lidocaine HCl 20 ml 08/22/23 22:53 Lidocaine 1% 20 Ml INJ INTRA-OP PRN Post Delivery Methylergonovine Maleate 0.2 mg 08/22/23 22:53 Methylergonovine 0.2 Mg Tablet PO Q6HR PRN Heavy Bleeding Methylergonovine Maleate 0.2 mg 08/22/23 22:53 Methylergonovine 0.2 Mg/Ml Vial IM NOW PRN Bleeding Misoprostol 800 mcg 08/22/23 22:53 Misoprostol 200 Mcg Tablet RI NOW PRN Bleeding Misoprostol 400 mcg 08/22/23 22:53 Misoprostol 200 Mcg Tablet SL NOW PRN Bleeding Nalbuphine HCl 2.5 mg 08/23/23 05:49 Nalbuphine 20 Mg/Ml Ampul IV Q10M PRN Pruritis Naloxone HCl 0.2 mg 08/22/23 22:53 Naloxone 0.4 Mg/Ml Vial IV Q2MIN PRN Opiate Reversal Ondansetron HCl 4 mg 08/22/23 22:53 Ondansetron 4 Mg/2 Ml Inj IV Q4HR PRN Nausea And Vomiting Oxytocin 10 unit 08/22/23 22:53 Oxytocin 10 Unit/Ml Vial IM NOW PRN Bleeding Allergies: Allergies Allergy/AdvReac Type Severity Reaction Status Date / Time No Known Drug Allergies Allergy Verified 08/17/23 15:33 Procedure Insertion date: 08/23/23 Insertion time: 05:07 Prep/Local: betadine x3 and 1% lidocaine Interspace: L3-L4 Patient position: sitting Needle: 18 gauge Joshtead Loss of resistance with: saline (+Air) GUERITA at (cm): 7 Catheter placed at SKIN (cm): 14 Catheter in SPACE (cm): 7 Insertion: No CSF, No Blood, No Paresthesia with insertion, No Paresthesia with injection and No Test dose reaction Initial Medications TEST DOSE time: 05:08 BOLUS DOSE time: 05:10 BOLUS DOSE (mL): 7 BOLUS DOSE med: other (2% Lidocaine) Infusion INFUSION: 0.125% bupivacaine and with fentanyl 2 mcg/mL Initial rate (mL/hr): 5 Post-procedure Anesthesia date START: 08/23/23 Anesthesia time START: 04:46 Anesthesia date END: 08/23/23 Anesthesia time END: 13:50 Post-procedure Anesthesia Assessment: Yes CV function: HR/BP stable, Yes Resp function: RR/sat/airway adequate, Yes Post-op hydration adequate, Yes Pain control adequate, Yes Nausea & vomiting absent, Yes Temperature > 36 C, Yes Mental status appropriate and Yes Anesthesia complications
[2023-08-23] MEDS: OXYTOCIN PREMIX 30 UNIT/500 ML PLAST..BAG IV (09:02)
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
[2023-08-23] MEDS: miSOPROStoL 200 MCG TABLET 800 MCG PR (14:00)
--- NOTE | 2023-08-23 15:03 | PM.OBPRVD ---
Labor & Delivery Delivery date: 08/23/23 Intrapartal Events: None Cervical ripening method: none Induction method: none Delivery augmentation: pitocin Delivery monitor: external FHT and external uterine Route of delivery: Episiotomy description: None L&D Laceration Description: None Quantitative Blood Loss: 800 Anesthesia Type: Epidural Complications: hemorrhage Narrative: PROCEDURE: at 41w3d presented with SROM in labor and was admitted to Labor and Delivery. The patient progressed through the 1st stage over 6.5 hours. ROM occured at 19:20 with clear fluid. Pain was controlled with an epidural. Pitocin augmentation was used due to spacing of contractions. The patient progressed through the 2nd stage over 24 minutes and delivered a viable female infant with APGARs 7/9 at 13:50 via without complications. The cord was cut and clamped after it stopped pulsating. The placenta delivered with gentle cord traction, and appeared complete. The perineum and vagina were inspected with no lacerations. Needle and sponge counts were correct.? The vagina was inspected and no items were left in situ. Vanna was doing well with her and at bedside. PREPROCEDURE DIAGNOSIS: Intrauterine at 41w3d GBS negative RH negative POSTPROCEDURE DIAGNOSIS: Intrauterine at 41w3d, delivered Same as preprocedure [place] Baby 1: gender: Female Presentation: vertex Position: Left Occiput Anterior Placenta delivery description: Spontaneous Cord Vessel Description: 3 Vessels and Nuchal Cord score (1 min): 8 score (5 min): 9 Plan for aftercare: Routine care
[2023-08-23] MEDS: ACETAMINOPHEN 325 MG TABLET 650 MG PO (21:31)
[2023-08-23] MEDS: IBUPROFEN 600 MG TABLET PO (21:32)
[2023-08-23] MEDS: LANOLIN OINT 7 GM 1 APPLIC TOP (21:37)
[2023-08-24] MEDS: ACETAMINOPHEN 325 MG TABLET 650 MG PO ×2 (05:04→11:34)
[2023-08-24] MEDS: IBUPROFEN 600 MG TABLET PO ×2 (05:04→11:34)
[2023-08-24 05:18] LABS: Add Manual Diff / Slide Review NO; Basophils Absolute Auto 0 /uL (0-100); Basophils Percent Auto 0.4 % (0-2); Eosinophils Absolute Auto 100 /uL (0-450); Hematocrit 29.6 % (36-46); Lymphocytes Absolute Auto 2400 /uL (1100-4500); Lymphocytes Percent Auto 22.9 % (25-40); Mean Corpuscular HGB Conc 33.8 % (30-36); Mean Corpuscular Hemoglobin 26.5 PG (26-34); Mean Corpuscular Volume 78.4 fL (80-100); Monocytes Absolute Auto 700 /uL (0-900); Monocytes Percent Auto 7.1 % (3-14); Neutrophils Absolute Auto 7200 /uL (1500-7000); Neutrophils Percent Auto 68.6 % (50-75); Platelet Count 124 X10^3/uL (150-400); Red Blood Cell Count 3.77 X10^6/uL (4.0-5.2); Red Cell Distribution Width 15.2 % (11.6-14.8); White Blood Cell Count 10.4 X10^3/uL (4.5-11.0)
--- NOTE | 2023-08-24 08:52 | PM.OBDS.1 ---
Discharge Providers Provider Date of admission: 08/22/23 22:19 Discharge Date: 08/24/23 Primary care physician: Betsy Hightower MD Consults: 08/24/23 15:01 Consult to Cleaning Supervisor Routine Comment: Discharge provider: Aliya Emery MD Summary Hospital Course Date Patient Seen: 08/24/23 Diagnoses: Intrauterine at 41w3d GBS negative RH negative hemorrhage Acute blood loss iron deficiency anemia Hospital Course: The pt presented in active labor with SROM at home. She received an epidural for pain control. Due to spacing of her contractions, pitocin was initiated. She progressed to complete and had an of a viable baby girl. After delivery, the pt had heavier vaginal bleeding. Sweep of her lower uterine segment produced significant clots. Cytotec was given, and the pts bleeding was then well controlled. , there were no additional complications. At the time of discharge she was voiding, ambulating, and passing flatus without difficulty. Her lochia was decreasing appropriately. Her pain was well controlled. She was with good latch. She will f/u in 6 weeks for check. She is undecide regarding contraception. The pt will be on an iron supplement at discharge due to mild anemia from blood loss. Peripartum Data Delivery Method: Natural Vaginal Laceration Description: None Episiotomy description: None complications: none Time Spent with Patient Time attestation: Total time spent providing and/or coordinating discharge services: Objective Labs 08/24/23 05:00 Labs: Laboratory Results - last 24 hr 08/24/23 05:00 WBC 10.4 RBC 3.77 L Hgb 10.0 L Hct 29.6 L MCV 78.4 L MCH 26.5 MCHC 33.8 RDW 15.2 H Plt Count 124 L Neut % (Auto) 68.6 Lymph % (Auto) 22.9 L [place] % (Auto) 7.1 Eos % (Auto) 1.0 L Baso % (Auto) 0.4 Neut # (Auto) 7200 H Lymph # (Auto) 2400 [place] # (Auto) 700 Eos # (Auto) 100 Baso # (Auto) 0 Exam Narrative Exam Narrative: Gen: NAD, sitting comfortably in bed, appears well CV: RRR, no murmurs Resp: clear to auscultation bilaterally Abd: soft, appropriately tender, fundus firm and below the umbilicus, nondistended Ext: no edema Discharge Plan Discharge Plan Patient Disposition: Home Discharge orders & Medications Prescriptions: New acetaminophen 325 mg Tablet 650 mg PO Q6HR PRN (Reason: Pain, Mild (1-3)) Qty: 30 0RF docusate sodium 100 mg Capsule 100 mg PO DAILY Qty: 30 0RF ferrous sulfate 325 mg (65 mg iron) Tablet 325 mg PO DAILY Qty: 30 0RF ibuprofen 600 mg Tablet 600 mg PO Q6HR PRN (Reason: Pain, Mild (1-3)) Qty: 30 0RF Continued prenat.vits,char,qsy-hapt-honzq Tablet 1 tab PO DAILY magnesium glycinate 100 mg tablet 350 mg PO DAILY cholecalciferol (vitamin D3) 50 mcg (2,000 unit) capsule 50 mcg PO DAILY Fortify [place] Probiotic 50 billion cell capsule,delayed release(DR/EC) 1 cap PO DAILY Follow up/Referrals: Judi Tucker MD [Physician] - 10/07/23 10:15 am Betsy Hightower MD [Primary Care Provider] - 08/26/23 Diet/Activity/Treatments Diet: Diet as Tolerated and Regular Skin/Wound/Dressing Care Report to your healthcare provider any signs of infection, such as:: chills, fever, increased pain and unusual drainage Visit Report/Discharge Packet Instructions: DI for Labor and Delivery, Vaginal Stand Alone Forms: Discharge: Care, Patient Portal/API, Stroke Signs & Symptoms Discharge Data Primary Care Provider: Betsy Hightower Discharges patient from system. Discharge Date/Time: 08/24/23 16:55
[2023-08-24] MEDS: PRENATAL VIT,CALC/IRON/FOLIC 1 TABLET 1 TAB PO (11:34)
[2023-08-24] MEDS: DOCUSATE 100 MG CAPSULE PO (11:34)
[2023-08-24 16:06] VITALS: BP 105/75; PULSE 77; RESP 14; TEMP 36.6
== END 2023-08-24 16:55 | disposition home or self-care (01) | DRG 806 ==
PROVIDERS: Admitting Provider Family Medicine; PCP Internal Medicine; Referring Provider Family Medicine; Visit Provider Family Medicine
DX: O42.02 Full-term premature rupture of membranes, onset of labor within 24 hours of rupture (principal); O72.1 Other immediate postpartum hemorrhage; Z37.0 Single live birth; O48.0 Post-term pregnancy; Z3A.41 41 weeks gestation of pregnancy
CPT/HCPCS: 36415; 59025; 59050; 59400; 59409; 84112; 85025; 86850; 86870; 86900; 86901; G0379; J2590; S0191